=== PATIENT | female | born 1940 | race Caucasian/White ===

== ENCOUNTER 2017-04-09 14:48 | Observation (INO) | payer MEDICARE ==
[2017-04-09] MEDS ORDERED: Aspirin Low Dose CHEW TAB* 81 MG PO ONE (15:01)
[2017-04-09] MEDS ORDERED: Nitroglycerin TAB 0.4 MG* 0.4 MG TAB SL ONE (15:24)
--- NOTE | 2017-04-09 15:27 | RAD ---
INDICATION: Chest pain and heaviness COMPARISON: Chest x-ray March 26, 2008 TECHNIQUE: Single AP portable view of the chest was obtained. FINDINGS: Image quality is compromised due to the relative inferiority of a portable chest x-ray. Evaluation of the lungs is limited by what appears to be poor inspiratory effort. There are densities obscuring the bilateral diaphragm and causing mild costophrenic angle blunting. The lung apices are well-aerated. Most of the heart is obscured by the elevated diaphragm. There is coarse atherosclerotic calcification at the arch of the aorta is similar in appearance to the previous chest x-ray. There appears to be expansile cortical irregularity involving the proximal humeral shaft and head of the humerus. The glenohumeral joint is sclerotic with bony remodeling. IMPRESSION: 1. Low lung volumes could be due to poor inspiratory effort, bilateral elevation of the diaphragm or bibasilar pleural effusion/consolidation. 2. Bony deformity involving the right humeral head could be secondary to advanced degenerative change or an expansile bony lesion. I recommend a nonemergent right shoulder radiographic series for better evaluation.
[2017-04-09 16:47] LABS: Hematocrit 41 % (35-47); Hemoglobin 13.5 g/dl (12.0-16.0); Mean Corpuscular HGB Conc 33 g/dl (31-36); Mean Corpuscular Hemoglobin 32 pg (27-31); Mean Corpuscular Volume 98 fL (80-97); Mean Platelet Volume 7 um3 (7.4-10.4); Red Blood Count 4.22 10^6/ul (4.0-5.4); Red Cell Distribution Width 15 % (10.5-15); White Blood Count 6.8 10^3/ul (3.5-10.8)
[2017-04-09 17:08] LABS: Albumin 3.5 g/dL (3.2-5.2); BUN/Creatinine Ratio 15.9 (8-20); Calcium 8.9 mg/dL (8.6-10.3); EGFR African American 118.8 (>60); EGFR Non-African American 92.4 (>60); Globulin 3.7 g/dL (2-4); Potassium 4.3 mmol/L (3.5-5.0); Total Bilirubin 0.3 mg/dL (0.2-1.0); Total Protein 7.2 g/dL (6.4-8.9); Troponin I 0.04 ng/mL (<0.04)
[2017-04-09] MEDS ORDERED: Ondansetron INJ* 2 MG/ML VIAL IV PRN (20:07)
[2017-04-09] MEDS ORDERED: Acetaminophen TAB* 325 MG PO PRN (20:07)
[2017-04-09] MEDS ORDERED: Enoxaparin(*) 40 MG/0.4 ML SYR SUBCUT SCH (21:00)
[2017-04-09] MEDS ORDERED: Mirtazapine TAB* 15 MG PO SCH (21:00)
[2017-04-09] MEDS: Hydroxychloroquine TAB* 200 MG PO SCH (22:18)
[2017-04-09] MEDS: Pantoprazole TAB (NF) 40 MG TAB PO SCH (22:18)
--- NOTE | 2017-04-10 00:44 | HP ---
CC: Dr. Perez * ADMISSION HISTORY AND PHYSICAL: DATE OF ADMISSION: 04/09/17 PRIMARY CARE PROVIDER: Dr. Perez, in [place]. ADMITTING PROVIDER: CAMELIA Kirby. SUPERVISING PHYSICIAN: Dr. Niko Hu * (DICTATED BY CAMELIA KIRBY) CHIEF COMPLAINT: Heaviness in her shoulders. HISTORY OF PRESENT ILLNESS: This was a pleasant 76-year-old female with a history of coronary artery disease, status post acute NC, resulting in two stents placed in August of 2016 in [place], as well as hypertension, lupus, and obstructive sleep apnea, who presented to the emergency department with complaints of heaviness in both of her shoulders. It started earlier today. She states that she had this similar sensation prior to prior NC. She denies any chest pain, shortness of breath, nausea, vomiting, diaphoresis or abdominal pain. No fever or recent illness. She has not had similar symptoms since her stenting procedure in August of last year. Initial troponin in the emergency department was 0.04 without ischemic changes noted on EKG. Hospitalist group was asked to evaluate for admission. PAST MEDICAL HISTORY: 1. Coronary artery disease, status post acute NC in August 2016, with stenting completed in [place]. 2. Hypertension. 3. Lupus. 4. Obstructive sleep apnea. PAST SURGICAL HISTORY: 1. Breast lumpectomy, which was benign. 2. Hemorrhoidectomy. HOME MEDICATIONS: 1. Aspirin 81 mg p.o. daily. 2. Calcium 600 mg p.o. daily. 3. Vitamin D 1000 units p.o. daily. 4. Plavix 75 mg p.o. daily. 5. Ferrous sulfate 325 mg p.o. daily. 6. Lasix 40 mg p.o. daily. 7. Plaquenil 200 mg p.o. twice daily. 8. Lisinopril 2.5 mg p.o. daily. 9. Metoprolol tartrate 12.5 mg p.o. daily. 10. Mirtazapine 15 mg p.o. at bedtime. 11. Omeprazole 20 mg p.o. twice daily. 12. Benlysta infusion monthly. SOCIAL HISTORY: The patient lives at home with her . She has a 20-pack - year smoking history and quit greater than 30 years ago. Denies any regular alcohol consumption. REVIEW OF SYSTEMS: As noted above in HPI. All other systems reviewed and considered negative. PHYSICAL EXAMINATION GENERAL: This is a very pleasant elderly female, accompanied by her , who is in no acute distress. She denies any pain or discomfort at the time of evaluation. INITIAL VITALS: Temperature 98.3 degrees Fahrenheit, pulse 98 beats per minute , respiratory rate 20 per minute, oxygen saturation 95% on room air, blood pressure 126/111 mmHg. HEENT: Head is normocephalic, atraumatic. Mucous membranes are pink and moist. RESPIRATORY: Breath sounds are equal bilaterally and some diffuse crackles appreciated in both posterior lung mclaughlin. CARDIOVASCULAR: Heart has a regular rate and rhythm, without murmurs, rubs or gallops. ABDOMEN: Soft and nontender to palpation. EXTREMITIES: No edema appreciated. SKIN: Limited exam shows no concerning rashes or lesions. LABORATORY DATA: CBC shows a white blood cell count to 6800, hemoglobin of 13.5 g/dL, and platelet count of 245,000. Comprehensive metabolic panel shows sodium of 139 mmol/L, potassium of 4.3, BUN 10, creatinine 0.63, random glucose of 96 mg/dL. Lactic acid 1.2. Total bilirubin and transaminases within normal limits. Troponin 0.04 x2. IMAGING: EKG shows sinus rhythm with inverted T waves in leads 2 and aVF as well as V3. There is no prior EKG available for comparison. Chest x-ray shows low lung volumes perhaps due to poor inspiratory effort, with bibasilar pleural effusion or consolidation. She has bony deformity of the right humeral head. This could be secondary to advanced degenerative change or bony lesion. ASSESSMENT AND PLAN: This is a 76-year-old female with a history of coronary artery disease, status post acute NC in August of 2016, as well as hypertension, lupus, and obstructive sleep apnea, who presented with complaints of bilateral heaviness in her shoulders similar to her prior presentation with NC. 1. Chest pain equivalent - the patient's symptoms lasted for approximately an hour and is asymptomatic at this time. Initial troponin was 0.04 on two occasions without ischemic changes noted on EKG. The patient has known coronary artery disease with acute myocardial infarction in August of 2016, with stenting completed in [place]. So, no prior records are available for comparison. She is still on dual antiplatelet therapy with aspirin and Plavix. We will plan to admit to telemetry unit for continuous telemetry monitoring as well as repeat EKG and a third troponin. We will plan for nuclear stress testing in the morning. 2. Hypertension. Plan to continue home antihypertensive medications. 3. Lupus - the patient is managed by cutter apprentice hand out of [place], without active symptoms. 4. Obstructive sleep apnea. Compliant with CPAP. Her has brought this in from home. 5. Code status. The patient is full code. 6. Healthcare proxy is her . 7. DVT prophylaxis. The patient will be started on subcu Lovenox. DISPOSITION: The patient is being admitted to observation status with anticipated discharge for tomorrow. CAMELIA KIRBY [id number]/CPS #: [id number]
[2017-04-10 05:16] LABS: HDL Cholesterol 29.2 mg/dL
[2017-04-10] MEDS ORDERED: Ferrous Sulfate TAB* 325 MG PO SCH (09:00)
[2017-04-10] MEDS ORDERED: Aspirin Low Dose CHEW TAB* 81 MG PO SCH (09:00)
[2017-04-10] MEDS ORDERED: Metoprolol Tartrate TAB* 25 MG PO SCH (09:00)
[2017-04-10] MEDS ORDERED: Clopidogrel TAB* 75 MG PO SCH (09:00)
[2017-04-10] MEDS ORDERED: Lisinopril TAB* 5 MG PO SCH (09:00)
[2017-04-10] MEDS ORDERED: Furosemide TAB* 40 MG PO SCH (09:00)
--- NOTE | 2017-04-10 10:03 | ED ---
Oliva Beltran Auryana, scribed for Alexander Ramires MD on 04/09/17 at 1545 . HPI Chest Pain - HPI Summary HPI Summary: 76 year old female present with heaviness in her shoulders starting today - mid morning. She reports 8 or 9 out of 10 intensity lasting about 30 minutes - she denies any symptoms now. She denies chest tightness, pressure or any pain. She denies any nausea, diaphoresis, arm pain, jaw/throat pain, or any cough - but reports cough last night. Patient reports her pain is improved with rest. 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 Patient reports that the symptoms are similar to her [place] in August (2015). PMHx is significant for lupus , drug-eluding stent ( in [place] in [place]) with [place] and bilateral shoulder fracture. She is a former smoker. - History of Current Complaint Chief Complaint: EDChestPainROMI Time Seen by Provider: 04/09/17 15:01 Hx Obtained From: Patient Onset/Duration: Started Hours Ago - mid-morning, Still Present Timing: Constant Initial Severity: Moderate Current Severity: Moderate Pain Intensity: 7 - denies any now Pain Scale Used: 0-10 Numeric Chest Pain Location: Discrete at: - shoulders Alleviating Factor(s): Rest Associated Signs and Symptoms: Negative: Chest Pain, Fever, Diaphoresis, Nausea Related History: Similar Episode/Dx as: - YES - SEE HPI - Allergy/Home Medications Allergies/Adverse Reactions: Allergies Allergy/AdvReac Type Severity Reaction Status Date / Time No Known Allergies Allergy Verified 04/09/17 18:54 Home Medications: Home Medications Aspirin Low Dose CHEW TAB* [Aspirin Low Dose TAB*] 81 mg PO DAILY 04/09/17 [ History Confirmed 04/09/17] Calcium 600 mg PO DAILY 04/09/17 [History Confirmed 04/09/17] Cholecalciferol TAB* [Vitamin D TAB*] 1,000 unit PO DAILY 04/09/17 [History Confirmed 04/09/17] Clopidogrel TAB* [Plavix TAB*] 75 mg PO DAILY 04/09/17 [History Confirmed ] Ferrous Sulfate TAB* 325 mg PO DAILY 04/09/17 [History Confirmed 04/09/17] Furosemide TAB* [Lasix TAB*] 40 mg PO DAILY 04/09/17 [History Confirmed 04/09/17 ] Hydroxychloroquine TAB* [Plaquenil TAB*] 200 mg PO BID 04/09/17 [History Confirmed 04/09/17] Lisinopril TAB* [Prinivil TAB*] 2.5 mg PO DAILY 04/09/17 [History Confirmed ] Metoprolol Tartrate TAB* [Lopressor TAB*] 12.5 mg PO DAILY 04/09/17 [History Confirmed 04/09/17] Mirtazapine TAB* [Remeron TAB*] 15 mg PO BEDTIME 04/09/17 [History Confirmed ] Omeprazole CAP* [Prilosec CAP* 20 MG] 20 mg PO BID 04/09/17 [History Confirmed 04/09/17] PMH/Surg Hx/FS Hx/Imm Hx Endocrine/Hematology History: Reports: Hx Systemic Lupus Erythematosus Cardiovascular History: Reports: Hx Myocardial Infarction Musculoskeletal History: Reports: Hx of Fracture(s) - bilateral shoulder Infectious Disease History: Denies: Traveled Outside the [place] in Last 30 Days - Family History Known Family History: Positive: Cardiac Disease, Hypertension - Social History Occupation: Retired Lives: With Family Alcohol Use: Rare Hx Substance Use: No Substance Use Type: Reports: None Hx Tobacco Use: Yes Smoking Status (MU): Former Smoker Review of Systems Constitutional: Negative Negative: Fever, Chills, Skin Diaphoresis Eyes: Negative Negative: Erythema ENT: Negative Negative: Sore Throat Cardiovascular: Negative Negative: Chest Pain Positive: Cough - PER . Negative: Shortness Of Breath Gastrointestinal: Negative Negative: Abdominal Pain, Vomiting, Nausea Genitourinary: Negative Negative: dysuria, hematuria Positive: Arthralgia - SHOULDER HEAVINESS, Other - NO ARM OR JAW PAIN . Negative: Myalgia, Edema Skin: Negative Negative: Rash Neurological: Negative, Other - no dizziness Psychological: Normal All Other Systems Reviewed And Are Negative: Yes Physical Exam - Summary Physical Exam Summary: Constitutional: Well-developed, Well-nourished, Alert. (-) Distressed Skin: Warm, Dry HENT: Normocephalic; Atraumatic Eyes: Conjunctiva normal Neck: Musculoskeletal ROM normal neck. (-) JVD, (-) Stridor, (-) Tracheal deviation Cardio: Rhythm regular, rate normal, Heart sounds normal; Intact distal pulses; The pedal pulses are 2+ and symmetric. Radial pulses are 2+ and symmetric. (-) Murmur Pulmonary/Chest wall: Effort normal. (-) Respiratory distress, (-) Wheezes, (+) crackles in the bilateral bases. Abd: Soft, (-) Tenderness, (-) Distension, (-) Guarding, (-) Rebound Musculoskeletal: (-) Edema Lymph: (-) Cervical adenopathy Neuro: Alert, Oriented x3 Psych: Mood and affect Normal Triage Information Reviewed: Yes Vital Signs On Initial Exam: Initial Vitals Temp Pulse Resp BP Pulse Ox 98.3 F 98 20 126/111 95 04/09/17 14:50 04/09/17 14:50 04/09/17 14:50 04/09/17 14:50 04/09/17 14:50 Vital Signs Reviewed: Yes Diagnostics - Vital Signs Vital Signs Temp Pulse Resp BP Pulse Ox 04/09/17 14:50 98.3 F 98 20 126/111 95 - Laboratory Result Diagrams: 04/09/17 16:40 04/09/17 16:40 Lab Statement: Any lab studies that have been ordered have been reviewed, and results considered in the medical decision making process. - Radiology CXR Xray Interpretation: Positive (See Comments) - IMPRESSION: 1. Low lung volumes could be due to poor inspiratory effort, bilateral elevation of the diaphragm or bibasilar pleural effusion/consolidation. 2. Bony deformity involving the right humeral head could be secondary to advanced degenerative change or an expansile bony lesion. I recommend a nonemergent right shoulder radiographic series for better evaluation. Radiology Interpretation Completed By: Radiologist - EKG 14:57 EKG Interpretation: sinus rhythm @ 94 bpm, no STEMI Re-Evaluation - Re-Evaluation First Eval Re-Evaluation Time: 19:25 - pain has completely resolved Chest Pain Course/Dx - Course Assessment/Plan: 76 year old female present with heaviness in her shoulders starting today - mid morning. She reports 8 or 9 out of 10 intensity lasting about 30 minutes - she denies any symptoms now. She denies chest tightness, pressure or any pain. She denies any nausea, diaphoresis, arm pain, jaw/throat pain, or any cough - but reports cough last night. Patient reports her pain is improved with rest. 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 Patient reports that the symptoms are similar to her [place] in August (2015). PMHx is significant for lupus, drug-eluding stent ( in [place] in [place]) with [place] and bilateral shoulder fracture. She is a former smoker. Test results show CO2 33, lactic acid 1.2, AST 12, ALT 5, Troponin 0.04, and albumin/globin ratio 0.9. CXR-IMPRESSION: 1. Low lung volumes could be due to poor inspiratory effort, bilateral elevation of the diaphragm or bibasilar pleural effusion/ consolidation. 2. Bony deformity involving the right humeral head could be secondary to advanced degenerative change or an expansile bony lesion. I recommend a nonemergent right shoulder radiographic series for better evaluation. EKG- sinus rhythm @ 94 bpm, no STEMI. I discussed the case with Dr. Knowles who agrees to admit the patient. Patient is agreeable with plan. DDx : Musculoskeletal pain, GERD, acute [place], PNA. Dx: chest pain, unspecified. - Chest Pain Differential Diagnosis/HQI/PQRI: Acute [place], GI Disease - GERD, Other: - PNA, and musckuloskeletal pain - Diagnoses Provider Diagnoses: Chest pain, unspecified - Provider Notifications Discussed Care Of Patient With: Tello Knowles Time Discussed With Above Provider: 19:18 - agrees to admit the patient Instructed by Provider To: Admit As Inpatient Discharge - Discharge Plan Condition: Stable Disposition: ADMITTED TO [facility] Referrals: Steve Perez MD [Primary Care Provider] - The documentation as recorded by the Oliva ortiz Auryana accurately reflects the service I personally performed and the decisions made by , Alexander Ramires MD.
--- NOTE | 2017-04-10 11:02 | RAD ---
Edited for charges. INDICATION: Chest pain, acute myocardial infarction August 2016. COMPARISON: Correlation is made with a prior study from March 27, 2008. Technique: A single day myocardial perfusion stress study was performed. Initially a resting study was performed. The patient was given an intravenous injection of 10.0 mCi of technetium 99m tetrofosmin and and the heart was imaged in multiple projections. The patient returned later in the day and under the direction of Dr. Duckworth, the patient was exercised to a peak heart rate of 149 beats per minute which was 102% of the maximum predicted heart rate. Subsequently the patient was given intravenous injection of 25.3 mCi of technetium 99m tetrofosmin and the heart was imaged in multiple projections. The study was not gated. The patient was unable to be positioned for the attenuation corrected images limiting the study. Images were reconstructed in the axial, sagittal and coronal planes and in a 3- D format. FINDINGS: Review of the images demonstrates mild decreased activity in the inferior wall which is present on both the post exercise and delayed images consistent with either an infarct or attenuation artifact. There was no evidence for ischemic change. IMPRESSION: 1. DECREASED ACTIVITY IN THE INFERIOR WALL ON BOTH THE POST EXERCISE AND RESTING IMAGES CONSISTENT WITH AN INFARCT OR ATTENUATION ARTIFACT. THERE IS NO EVIDENCE FOR ISCHEMIA. 2. LIMITED STUDY. [facility]
--- NOTE | 2017-04-10 11:52 | PN ---
Subjective Date of Service: 04/10/17 Interval History: Patient seen and examined at bedside. Pt states that she is felling well today. Denies fever, chills, shortness of breath, chest discomfort, N/V/D. Pt states that she has been "pushing" heavy furniture around her house recently and feels that this may have aggravated her symptoms. Tele: Sinus rhythm, rate 70-80's. Family History: Unchanged from Admission Social History: Unchanged from Admission Past Medical History: Unchanged from Admission Objective Active Medications: Acetaminophen (Tylenol Tab*) 650 mg PO Q4H PRN Reason: FEVER/PAIN Aspirin (Aspirin Low Dose Tab*) 81 mg PO DAILY FRED Clopidogrel Bisulfate (Plavix Tab*) 75 mg PO DAILY FRED Enoxaparin Sodium (Lovenox(*)) 40 mg SUBCUT Q24H FRED Ferrous Sulfate (Ferrous Sulfate Tab*) 325 mg PO DAILY FRED Furosemide (Lasix Tab*) 40 mg PO DAILY FRED Hydroxychloroquine Sulfate (Plaquenil Tab*) 200 mg PO BID FRED Lisinopril (Prinivil Tab*) 2.5 mg PO DAILY FRED Metoprolol Tartrate (Lopressor Tab*) 12.5 mg PO DAILY FRED Mirtazapine (Remeron Tab*) 15 mg PO BEDTIME FRED Ondansetron HCl (Zofran Inj*) 4 mg IV Q4H PRN Reason: NAUSEA/VOMITING Pantoprazole Sodium (Protonix Tab (Nf)) 40 mg PO BID [facility] Vital Signs 04/09/17 04/09/17 04/09/17 21:38 21:40 21:43 Temperature 97.6 F Pulse Rate 81 Respiratory 21 22 18 Rate Blood Pressure 142/54 (mmHg) O2 Sat by Pulse 98 Oximetry 04/09/17 04/10/17 23:17 03:20 Temperature 97.8 F Pulse Rate 84 78 Respiratory 20 24 Rate Blood Pressure 128/64 135/71 (mmHg) O2 Sat by Pulse 98 99 Oximetry Oxygen Devices in Use Now: None Appearance: NAD, sitting up in bed Ears/Nose/Mouth/Throat: Mucous Membranes Moist Respiratory: Symmetrical Chest Expansion and Respiratory Effort, Clear to Auscultation Cardiovascular: NL Sounds; No Murmurs; No JVD, RRR Abdominal: NL Sounds; No Tenderness; No Distention Extremities: No Edema Skin: No Rash or Ulcers Neurological: Alert and Oriented x 3, NL Muscle Strength and Tone Lines/Tubes/Other Access: Clean, Dry and Intact Peripheral IV - site benign Nutrition: Taking PO's Result Diagrams: 04/09/17 16:40 04/09/17 16:40 Assess/Plan/Problems-Billing Assessment: Ms. Ayala is a 76 yo female with PMH significant for CAD, [place] in 08/2016, HTN, lupus and VINCE who presented to the emergency room with complaints of bilateral heaviness in her shoulder similar to presentation for her [place]. - Patient Problems (1) Chest pain Code(s): R07.9 - CHEST PAIN, UNSPECIFIED SNOMED Code(s): 33230727 Comment: - Pt presented with bilateral shoulder heaviness, no associated symptoms of chest discomfort, diaphoresis, N/V or shortness of breath - Troponins 0.04, 0.04 and 0.03 - Nuclear stress test - Cardiology read as low risk and Radiology read as decreased activity in the inferior wall on both post exercise and resting images. No evidence for ischemia (2) CAD (coronary artery disease) Code(s): I25.10 - ATHSCL HEART DISEASE OF [place] CORONARY ARTERY W/O ANG PCTRS SNOMED Code(s): 04050284 Comment: - Continue ASA, Plavix and metoprolol (3) HTN (hypertension) Code(s): I10 - ESSENTIAL (PRIMARY) HYPERTENSION SNOMED Code(s): 37784401 Comment: - Normotensive - Continue lasix, lisinopril and metoprolol tartrate (4) Lupus Code(s): M32.9 - SYSTEMIC LUPUS ERYTHEMATOSUS, UNSPECIFIED SNOMED Code(s): 88870260 Comment: - Continue to follow-up outpatient with rheumatology (5) VINCE (obstructive sleep apnea) Code(s): G47.33 - OBSTRUCTIVE SLEEP APNEA (ADULT) (PEDIATRIC) SNOMED Code(s): 53321741 Comment: - Continue CPAP (6) DVT prophylaxis Code(s): HLI8942 - SNOMED Code(s): 721719151 (7) Full code status Code(s): Z78.9 - OTHER SPECIFIED HEALTH STATUS SNOMED Code(s): 236740468 Status and Disposition: OBV. Stable for discharge to home today.
[2017-04-10] MEDS: Hydroxychloroquine TAB* 200 MG PO SCH (12:07)
[2017-04-10] MEDS: Pantoprazole TAB (NF) 40 MG TAB PO SCH (12:09)
[2017-04-10 12:37] VITALS: BP 126/68
--- NOTE | 2017-04-11 01:19 | DS ---
CC: Dr. Perez* DISCHARGE SUMMARY: DATE OF ADMISSION: 04/09/17 DATE OF DISCHARGE: 04/10/17 ATTENDING PHYSICIAN: Abelino Knowles MD *(dictated by Kerri Huitron NP) PRIMARY CARE PROVIDER: Steve Perez MD PRIMARY DIAGNOSIS: Atypical chest pain, suspect noncardiac in nature. SECONDARY DIAGNOSES: 1. History of coronary artery disease, status post acute myocardial infarction. 2. Hypertension. 3. Lupus. 4. Obstructive sleep apnea. STUDIES WHILE IN THE HOSPITAL: 1. Chest x-ray on 04/09/17. Radiologist's impression, low lung volumes could be due to poor inspiratory effort, bilateral evaluation of the diaphragm or bibasilar pleural effusion with consolidation. Bony deformity involving the right humeral head could be secondary to advanced degenerative changes or an expansile bony lesion. Recommend a nonemergent right shoulder radiographic series for better evaluation. 2. Nuclear exercise cardiac stress test on 04/10/17. Cardiology's observation , the patient with history of CAD and recent chest pain. Baseline EKG in normal sinus rhythm, poor R wave progression. The patient exercised for 4.10 minutes; chest pain, none; arrhythmia, none; ST changes, none. Myoview injected at peak exercise. Technical Training Coordinator's conclusion, maximal effort stress test. No evidence of ischemia. Low risk stress test. Nuclear portion to be reported separately by Radiology. Radiologist's interpretation, decreased activity in the inferior wall on both the postexercise and resting images consistent with an infarct or attenuation artifact. There is no evidence for ischemia. Limited study. DISCHARGE MEDICATIONS: Continued home medications: 1. Vitamin D 1000 units oral daily. 2. Aspirin 81 mg oral daily. 3. Furosemide 40 mg oral daily. 4. Plavix 75 mg oral daily. 5. Remeron 15 mg oral daily at bedtime. 6. Ferrous sulfate 325 mg oral daily. 7. Omeprazole 20 mg oral twice daily. 8. Metoprolol tartrate 12.5 mg oral daily. 9. Lisinopril 2.5 mg oral daily. 10. Plaquenil 200 mg oral twice daily. 11. Calcium 600 mg oral daily. HISTORY OF PRESENT ILLNESS/HOSPITAL COURSE: Ms. Ayala is a 76-year-old female with past medical history significant for coronary artery disease, status post acute myocardial infarction resulting in 2 stents placed in August 2016 in [place] as well as hypertension, lupus, and obstructive sleep apnea who presented today at [facility] Room with complaints of heaviness in both of her shoulders starting earlier in the day. The patient felt that the symptoms were similar to prior sensation she had before her previous [place]. The patient denied any associated symptoms such as chest discomfort, shortness of breath, nausea, vomiting, diaphoresis, or abdominal pain. The patient denied any recent illness and has not had any similar symptoms since her stenting procedure in August of last year. It is to note that the patient reports recently moving heavy furniture around her house and she has previously fractured both of her shoulders. Due to her symptoms with bilateral shoulder heaviness, she decided to present to the emergency room for further evaluation of her symptoms. While in the emergency room, the patient had an initial troponin of 0.04 and an EKG without signs of ischemia and the Hospitalists were asked to evaluate the patient for admission. While in the hospital, the patient's troponin was trended, and were 0.04 x2 followed by 0.03. The patient underwent an exercise nuclear stress test this morning. The Cardiology read on the stress test was low risk. No signs of ischemia were noted. Radiology was unable to risk stratify the stress test due to inability to determine an EF. Due to attenuation artifact, they were unable to get better imaging due to the patient's history of bilateral shoulder injuries. There was no evidence for ischemia. The patient denied any chest discomfort, shortness of breath, diaphoresis. The patient feels that she may have overdone it moving furniture. It is suspected that the patient's discomfort may represent musculoskeletal strain. Ms. Ayala is stable for discharge to home today. Vital signs are as follows: Temperature 97.8, heart rate 74, respiratory rate 24, O2 sat 99%, and blood pressure 135/71. DISCHARGE PLAN: Ms. Ayala will be discharged to home. Activity as tolerated. A heart healthy diet. I suspect that her bilateral shoulder discomfort is musculoskeletal in nature. She should be seen in followup by her primary care provider, Dr. Perez. She has an appointment for Sunday, , at 2 p.m. The patient should continue to follow up with her local medical staff manager as previously determined. The patient has been continued on all of her home medications. She has been asked to return to the emergency room for any chest discomfort or shortness of breath. This is a summarized report of a complex medical history and hospital stay. For further details, please see the entire medical record. TIME SPENT: Time for this discharge was approximately 45 minutes, greater than half the time was spent with the patient and discussing discharge plans and instructions. CONDITION ON DISCHARGE: Stable. Reviewed by SHARLA AMIN 04/12/17 1109 [id number] #: [id number]
== END 2017-04-10 14:00 | disposition home or self-care (01) ==
LOC: ED 14:48 → MEDTELE 20:07
PROVIDERS: ADMIT Internal Medicine; ATTEND Internal Medicine
DX: R07.9 Chest pain, unspecified (principal); I25.10 Atherosclerotic heart disease of native coronary artery without angina pectoris; R94.31 Abnormal electrocardiogram [ECG] [EKG]; I25.2 Old myocardial infarction; I10 Essential (primary) hypertension; M32.9 Systemic lupus erythematosus, unspecified; G47.33 Obstructive sleep apnea (adult) (pediatric); Z79.01 Long term (current) use of anticoagulants; Z87.891 Personal history of nicotine dependence
CPT/HCPCS: 36415; 71010; 78452; 80053; 80061; 83605; 84484; 85025; 93005; 93017; 96372; 99284; A9270-GY; A9502; G0378; J1650

== ENCOUNTER 2019-11-13 18:30 | Emergency (ER) | payer MEDICARE ==
--- OUTSIDE RECORDS SUMMARY | 2019-11-13 18:38 | XMS REPORT | Summary of Care ---
:1940 Author Organization [facility] Address [address] [place] [address] Care Team Providers Name Role Phone Erick Eli Primary Care Provider Reason for Visit Reason Comments Urinary Tract Infection frequency, burning, odor started Sunday Encounter Details Date Type Department Care Team Description 10/03/2019 Office Visit [facility] Erick Eli, Urinary tract infection without hematuria, site unspecified (Primary Dx); Medicine Depression screen [address] [phone] [place] [address] [phone] Allergies Active Allergy Reactions Severity Noted Date Comments Augmentin GI Reaction 08/26/2019 diarrhea Pantoprazole Rash 01/02/2013 documented as of this encounter (statuses as of 10/03/2019) Medications Medication Sig Dispensed Refills Start Date End Date Status Belimumab (BENLYSTA IV) by Intravenous 0 Active route Every 63 days. albuterol HFA (VENTOLIN) Take 2 Puffs by 1 Inhaler 5 01/19/2015 Active 108 (90 BASE) MCG/ACT inhalation EVERY Inhalation Aero FOUR HOURS SolnIndications: Cough NEEDED (wheezing). ferrous sulfate 325 (65 Take 1 Tab by 90 Tab 3 10/10/2016 Active FE) MG Oral Tab mouth DAILY. Omeprazole delayed rel Take 20 mg by 180 Cap 3 06/12/2018 Active cap 20 MG Oral CAPSULE mouth TWICE DELAYED RELEASE DAILY. Take 30-60 minutes prior to breakfast and prior to dinner (supper). Polyethyl Glycol-Propyl Place 1 Drop in 0 Active Glycol (SYSTANE OP) both eyes TWICE DAILY. Calcium Take 1 Tab by 0 Active Carb-Cholecalciferol mouth DAILY. (CALCIUM/VITAMIN D PO) nitroglycerin DISSOLVE 1 TABLET 25 Tab 0 03/10/2019 Active (NITROSTAT) 0.4 MG UNDER TONGUE Sublingual SL Tab EVERY 5 MINUTES NEEDED FOR CHEST PAIN hydroxychloroquine Take 1 Tab by 180 Tab 3 03/31/2019 Active (PLAQUENIL) 200 MG Oral mouth TWICE Tab DAILY. metoprolol (LOPRESSOR) Take 1 Tab by 180 Tab 3 03/31/2019 Active 25 MG Oral mouth TWICE TabIndications: Chronic DAILY. 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 famotidine (PEPCID) 20 Take 1 Tab by 60 Tab 11 07/29/2019 Active MG Oral TabIndications: mouth TWICE Gastroesophageal reflux DAILY. disease without esophagitis doxycycline (VIBRAMYCIN) Take 100 mg by 20 Tab 0 08/26/2019 Active 100 MG Oral mouth TWICE TabIndications: Acute DAILY. frontal sinusitis, recurrence not specified mirtazapine (REMERON) 15 TAKE 1 TABLET BY 90 Tab 3 09/23/2019 Active MG Oral Tab MOUTH AT BEDTIME lisinopril (PRINIVIL, TAKE 1 TABLET BY 90 Tab 0 09/30/2019 Active ZESTRIL) 5 MG Oral Tab MOUTH ONCE DAILY nitrofurantoin Take 1 Cap by 14 Cap 0 10/03/2019 Active monohydrate macrocrystal mouth TWICE (MACROBID) 100 MG Oral DAILY. Cap documented as of this encounter (statuses as of 10/03/2019) Active Problems Problem Noted Date Dysphagia 02/14/2019 Elevated troponin 12/25/2018 ASHD (arteriosclerotic heart disease) 05/01/2017 ACS (acute coronary syndrome) 05/01/2017 Colitis 03/01/2016 Food impaction of esophagus 06/18/2015 Esophageal stricture 06/18/2015 Pressure ulcer, buttock(707.05) 01/19/2014 Pressure ulcer, stage III(707.23) 01/19/2014 Vitamin D deficiency 12/30/2012 Iron deficiency 12/30/2012 Iron deficiency anemia 02/06/2012 Hemorrhage of rectum and anus 01/06/2012 Internal hemorrhoids with other complication 01/06/2012 Cellulitis and abscess of leg, except foot 01/01/2012 Urinary tract infection, site not specified 01/01/2012 Rhinosinusitis 11/24/2011 Screening breast examination 03/10/2010 Routine gynecological examination 03/10/2010 Vitamin B12 deficiency 03/10/2010 Hypertriglyceridemia 03/10/2010 FH: uterine cancer 03/10/2010 Ex-cigarette smoker 03/10/2010 Guaiac positive stools 03/10/2010 Overview: Replaced inactive diagnosis CHF 01/27/2010 Overview: Echocardiogram 01/24/10 IN SUMMARY: This study shows mild left ventricular hypertrophy with an ejection fraction low normal at 55% to 60%. There is mild left atrial enlargement. There are no significant hemodynamic abnormalities. CXR 01/19/10 Impression: Atelectatic change at the lung bases. BNP 01/19/10 25 Nuclear 06/29/09 Impression: Normal study. No reversible ischemia. Cardiac catheterization 01/21/02 Dr. Gonzalez: Normal coronary arteries. Preserved left ventricular function. Osteoporosis 01/19/2010 Other and unspecified hyperlipidemia 07/16/2009 Anemia 06/04/2008 Dehydration 05/01/2008 Fever and other physiologic disturbances of temperature regulation 05/01/2008 Other chronic nonalcoholic liver disease 04/23/2008 Other noninflammatory disorder of ovary, fallopian tube, and broad 04/23/2008 ligament Systemic lupus erythematosus 01/30/2008 Abdominal pain, unspecified site 01/28/2008 Loss of weight 01/28/2008 Other and unspecified ovarian cyst 01/28/2008 Diverticulosis of colon (without mention of hemorrhage) 06/24/2007 documented as of this encounter (statuses as of 10/03/2019) Resolved Problems Problem Noted Date Resolved Date Osteopenia 07/20/2008 01/19/2010 Essential hypertension, benign 01/30/2008 07/20/2008 Anemia, unspecified 01/30/2008 06/04/2008 Osteoporosis, unspecified 06/24/2007 07/20/2008 documented as of this encounter (statuses as of 10/03/2019) Immunizations Name Administration Dates Next Due Adacel TdaP 11/25/2015 Influenza (IM) Preservative Free 07/18/2019, 2017, 07/08/2015, 06/24/2012, 07/04/2011, 07/20/2008 Influenza (IM) W/Pres 06/27/2016 Influenza Vaccine High Dose 07/17/2018 Influenza Virus Vaccine - Whole 07/11/2007 PNEUMOCOCCAL POLYSACCHARIDE VACCINE 09/18/2012 Pneumococcal Conjugate(13 Valent) 04/23/2015 documented as of this encounter Social History Tobacco Use Types Packs/Day Years Used Date Former Smoker Cigarettes 1 15 Quit: 02/01/1975 Smokeless Tobacco: Never Used Alcohol Use Drinks/Week oz/Week Comments No 0 Standard drinks or equivalent 0.0 Sex Assigned at Date Recorded Not on file Job Start Date Occupation Industry Not on file Not on file Not on file Travel History Travel Start Travel End No recent travel history available. documented as of this encounter Last Filed Vital Signs Vital Sign Reading Time Taken Comments Blood Pressure 126/72 10/03/2019 11:18 AM EST Pulse 79 10/03/2019 11:18 AM EST Temperature 36.7 10/03/2019 11:18 AM EST C (98 F) Respiratory Rate - - Oxygen Saturation 92% 10/03/2019 11:18 AM EST Inhaled Oxygen Concentration - - Weight 48.1 kg (106 lb) 10/03/2019 11:18 AM EST Height 144.8 cm (4' 9") 10/03/2019 11:18 AM EST Body Mass Index 22.94 10/03/2019 11:18 AM EST documented in this encounter Progress Notes Erick Eli MD - 10/03/2019 11:00 AM EST PATIENT: Divina Ayala : 1940 DATE OF SERVICE: 10/03/2019 CHIEF COMPLAINT: Chief Complaint Patient presents with Urinary Tract Infection frequency, burning, odor started Sunday Subjective HISTORY OF PRESENT ILLNESS: Divina Ayala is a 79-y.o. female. HPI Divina is here with urinary frequency burning and odor. No fever or chills. No flank pain. Similar episodes in the past which were diagnosed as UTI. Past Medical History: Diagnosis Date Anemia, unspecified 01/30/2008 Arthritis Colitis 03/01/2016 Diverticulitis of colon 06/24/2007 Diverticulosis of colon (without mention of hemorrhage) 06/24/2007 GERD (gastroesophageal reflux disease) Hemorrhage of rectum and anus 01/06/2012 History of breast surgery rt bx benign Humerus fracture hyperlipidemia 06/24/2007 Hypertension[401.1] 01/30/2008 Intermediate coronary syndrome (HCC) Left heart failure (HCC) Lipidoses VINCE (obstructive sleep apnea) Osteoporosis 06/24/2007 Other chronic nonalcoholic liver disease 04/23/2008 pt denies Other postprocedural status(V45.89) RT BENIGN PT IN HER 50'S 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 Personal history of contraception, presenting hazards to health 30-36 Postmenopausal Surgery, elective cataracts/yag ou Systemic lupus erythematosus (HCC) 01/30/2008 Vitamin B12 deficiency 03/10/2010 Family History Problem Relation Age of Onset Heart Mother valve replacement Uterine Cancer Mother Hypertension Mother Heart Father Heart Disease Father Hypertension Father Anesth Problems No family history Arthritis No family history Clotting Disorder No family history Diabetes No family history Kidney Disease No family history Thyroid Disease No family history Glaucoma No family history Macular Degeneration No family history Blindness No family history Current Outpatient Medications Medication Sig albuterol HFA (VENTOLIN) 108 (90 BASE) MCG/ACT Inhalation Aero Soln Take 2 Puffs by inhalation EVERY FOUR HOURS NEEDED (wheezing). Belimumab (BENLYSTA IV) by Intravenous route Every 63 days. Calcium Carb-Cholecalciferol (CALCIUM/VITAMIN D PO) Take 1 Tab by mouth DAILY. clopidogrel (PLAVIX) 75 MG Oral Tab Take 1 Tab by mouth DAILY. doxycycline (VIBRAMYCIN) 100 MG Oral Tab Take 100 mg by mouth TWICE DAILY. famotidine (PEPCID) 20 MG Oral Tab Take 1 Tab by mouth TWICE DAILY. ferrous sulfate 325 (65 FE) MG Oral Tab Take 1 Tab by mouth DAILY. hydroxychloroquine (PLAQUENIL) 200 MG Oral Tab Take 1 Tab by mouth TWICE DAILY. lisinopril (PRINIVIL, ZESTRIL) 5 MG Oral Tab TAKE 1 TABLET BY MOUTH ONCE DAILY metoprolol (LOPRESSOR) 25 MG Oral Tab Take 1 Tab by mouth TWICE DAILY. mirtazapine (REMERON) 15 MG Oral Tab TAKE 1 TABLET BY MOUTH AT BEDTIME nitrofurantoin monohydrate macrocrystal (MACROBID) 100 MG Oral Cap Take 1 Cap by mouth TWICE DAILY. nitroglycerin (NITROSTAT) 0.4 MG Sublingual SL Tab DISSOLVE 1 TABLET UNDER TONGUE EVERY 5 MINUTES NEEDED FOR CHEST PAIN Omeprazole delayed rel cap 20 MG Oral CAPSULE DELAYED RELEASE Take 20 mg by mouth TWICE DAILY. Take 30-60 minutes prior to breakfast and prior to dinner (supper). Polyethyl Glycol-Propyl Glycol (SYSTANE OP) Place 1 Drop in both eyes TWICE DAILY. No current facility-administered medications for this visit. Allergies Allergen Reactions Augmentin GI Reaction diarrhea Protonix [Pantoprazole] Rash Social History Socioeconomic History Marital status: Spouse name: Not on file Number of children: Not on file Years of education: Not on file Highest education level: Not on file Occupational History Not on file Social Needs Financial resource strain: Not on file Food insecurity Worry: Not on file Inability: Not on file Transportation needs Medical: Not on file Non-medical: Not on file Tobacco Use Smoking status: Former Smoker Packs/day: 1.00 Years: 15.00 Pack years: 15.00 Types: Cigarettes Last attempt to quit: 02/01/1975 Years since quittin.6 Smokeless tobacco: Never Used Substance and Sexual Activity Alcohol use: No Alcohol/week: 0.0 standard drinks Drug use: No Sexual activity: Never Lifestyle Physical activity Days per week: Not on file Minutes per session: Not on file Stress: Not on file Relationships Social connections Talks on phone: Not on file Gets together: Not on file Attends adventism service: Not on file Active member of club or organization: Not on file Attends meetings of clubs or organizations: Not on file Relationship status: Not on file Intimate partner violence Fear of current or ex partner: Not on file Emotionally abused: Not on file Physically abused: Not on file Forced sexual activity: Not on file Other Topics Concern Back Care Not Asked Bike Helmet Not Asked Blood Transfusions Not Asked Caffeine Concern Not Asked Exercise Not Asked Hobby Hazards Not Asked International Travel Not Asked Service Not Asked Occupational Exposure Not Asked Seat Belt Not Asked Self-Exams Not Asked Sleep Concern Not Asked Special Diet Not Asked Stress Concern Not Asked Weight Concern Not Asked Social History Narrative 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 Patient is , and has 2 children. BMI:26.63 FLU VACCINE:06/21/09 PNEUMONIA VACCINE:05/2010TOBACCO USE:non ADVISING SMOKER TO QUIT: BONE DENSITY:07/14/09 MAMMOGRAPHY:07/16/07 URINARY INCONTINENCE:n/a COLORECTAL CANCER SCREENIN/16/07 Over the last 2 weeks, have you been feeling down, depressed, anxious, or hopeless?: 0 Over the past 2 weeks, have you felt little interest or pleasure in doing things ?: 0 REVIEW OF SYSTEMS: ROS Objective PHYSICAL EXAM: VITALS: BP 126/72 | Pulse 79 | Temp 98 F (36.7 C) | Ht 4' 9" (1.448 m) | Wt 106 lb (48.1 kg) | SpO2 92% | BMI 22.94 kg/m Body mass index is 22.94 kg/m. Physical Exam Alert and oriented in no distress Normal mood and affect. Vital signs as noted Skin is warm and dry with good turgor.No visible rashes. Lungs are clear to auscultation. Respirations are unlabored Heart rhythm is regular. No murmurs noted No focal weakness. No facial nerve weakness Abdomen is soft and nontender. Admission on 07/08/2019, Discharged on 07/08/2019 Component Date Value Ref Range Status Upper GI endoscopy 07/08/2019 Final Value:[facility] Patient Name: Divina Ayala Procedure Date: 07/08/2019 11:19 AM Date of : 1940 Admit Type: Outpatient Age: 79 Room: 17 Gender: Female Note Status: Finalized Attending MD: DREA STEPHEN MD Instrument Name: [id number] Procedure: Upper GI endoscopy Indications: Dysphagia Providers: DREA STEPHEN MD, Carlos Jones RN (Nurse), Susanne Bonner (Corsetier) Referring MD: ERICK ELI MD (Referring MD) Medicines: Monitored Anesthesia Care Complications: No immediate complications. Procedure: The patient's current medications and allergies were reviewed and recorded in the nurses notes. The patient was made aware of the risk of the procedure which can include: bleeding, infection, perforation, an adverse reaction to sedation, and a risk of missed lesions, among others. The patient appeared to understand. An opportunity for questions was provided, and an informed consent form was signed. The scope was passed under direct vision. Throughout the procedure, the patient's blood pressure, pulse EKG, and oxygen saturations were monitored continuously. The Endoscope was introduced through the mouth, and advanced to the duodenal bulb. The Z-line was located at: The upper GI endoscopy was accomplished without difficulty. The patient tolerated the procedure well. Findings: The examined duodenum was normal. The entire examined stomach was normal. A 5 cm hiatal hernia was present. One benign-appearing, intrinsic moderate (circumferential scarring or stenosis; an endoscope may pass) stenosis was found 35 cm from the incisors. This stenosis measured 1.5 cm (inner diameter) x less than one cm (in length). The stenosis was traversed. A TTS dilator was passed through the scope. Dilation with a 15-16.5-18 mm balloon dilator was performed to 18 mm. The dilation site was examined following endoscope reinsertion and showed mild mucosal disruption, mild improvement in luminal narrowing and no bleeding, mucosal tear or perforation. A non-bleeding diverticulum with a large opening and no stigmata of recent bleeding was found in the distal esophagus. Food was found in the lower third of the esophagus. Impression: - Normal examined duodenum. - Normal stomach. - 5 cm hiatal hernia. - Benign-appearing esophageal stenosis. Dilated. - Diverticulum in the distal esophagus. - Food in the lower third of the esophagus. - No specimens collected. Recommendation: - Discharge patient to home (ambulatory). - Advance diet as tolerated. - Continue present medications. - Repeat upper endoscopy PRN for retreatment. 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 All rights reserved. The codes documented in this report are preliminary and upon securities sales associate review may be revised to meet current compliance requirements. DREA STEPHEN MD 07/08/2019 12:50:06 PM This report has been signed electronically. Number of Addenda: 0 Note Initiated On: 07/08/2019 11:19 AM CC Letter to: ERICK ELI MD (CC) Estimated Blood Loss: Estimated blood loss was minimal. ASSESSMENT / IMPRESSION: ICD-9-CM ICD-10-CM 1. Urinary tract infection without hematuria, site unspecified 599.0 N39.0 URINE DIP MANUAL (AMB POCT) URINE CULTURE (C&S) CANCELED: URINE DIP CLINITEK (AMB POCT) CANCELED: URINE CULTURE (C&S) 2. Depression screen V79.0 Z13.31 She will attempt to give a sample but if not she will go ahead and start antibiotics. Plan Call or return to clinic prn if these symptoms worsen or fail to improve as anticipated. Author: Erick Eli MD 10/03/2019 14:54 documented in this encounter Plan of Treatment Date Type Specialty Care Team Description 01/27/2020 Office Visit Pulmonary Lupe Mckay MD [address] [place] [address] 02/11/2020 Office Visit Gastroenterology Aliyah Zhang, SELBE [address] [place] [address] [address] [phone] 02/27/2020 Office Visit Pulmonary Lupe Mckay MD [address] [place] [address] 03/03/2020 Office Visit Cardiology Lori Patel CRNP [address] [place] [address] 04/19/2020 IPPR Ophthalmology 04/19/2020 IPPR Ophthalmology 04/19/2020 Ocular Visit Optometry Oumar Mayes, OD [address] [place] [address] 05/28/2020 Office Visit project construction assistant manager Holly Rodgers CRNP [address] [place] [address] Name Type Priority Associated Diagnoses Order Schedule URINE DIP MANUAL (AMB POCT Routine Urinary tract infection Ordered: 2019 POCT) without hematuria, site unspecified URINE CULTURE (C&S) Lab Routine Urinary tract infection 1 Occurrences starting without hematuria, site 10/03/2019 until unspecified 04/02/2020 Health Maintenance Due Date Last Done Comments HEPATITIS A IMMUNIZATION 1941 SERIES (1 of 2 - Risk 2-dose series) DTaP/Tdap/Td Vaccines (1 - 1953 Tdap) ZOSTER IMMUNIZATION SERIES 1992 (1 of 2) FALL RISK ASSESSMENT 2007 MEDICARE ANNUAL WELLNESS 03/07/2017 03/07/2016 (Postponed) VISIT DEPRESSION SCREENING 10/03/2020 10/03/2019 Colonoscopy 05/24/2021 05/24/2016, 01/02/2012, 07/02/2007, Additional history exists OSTEOPOROSIS SCREENING 01/05/2027 01/05/2017, 03/19/2014, 01/26/2011, Additional history exists HIV SCREENING Completed 03/05/2012, 03/05/2012 PNEUMOCOCCAL 65+YRS Completed 04/23/2015, 09/18/2012 INFLUENZA VACCINE Completed 07/18/2019, 07/17/2018, 2017, Additional history exists HPV IMMUNIZATION SERIES Aged Out No longer eligible based on patient's age to complete this topic MENINGOCOCCAL VACCINE IMM Aged Out No longer eligible based on patient's age to complete this topic documented as of this encounter Goals Goal Patient Goal Associated Recent Patient-Stated? Author Type Problems Progress Blood Pressure Blood Pressure 126/72 No Chris, < 150/90 (10/03/2019 MD Erick 11:18 AM EST) Note: This is an individualized treatment (blood pressure) goal for Divina Ayala: Displayed above (on the left) is your goal for blood pressure control. Your most recent blood pressure is also shown above, on the right. You should try to achieve blood pressures that are lower than your goal listed above (on the left). Weight increase vs. 18 mo CHF 1.4 (10/03/2019 11:18 AM EST) No Yazmin Cross RN min (lbs) < 5 Note: This is an individualized treatment (congestive heart failure, CHF) goal for Divina Ayala: Displayed above (on the right) is how many pounds you are in excess of your lowest weight over the past 18 months. Note that lower numbers are better. Excessive weight gain often indicates fluid reten tion and worsening heart failure. You should contact your doctor immediately if the above number is too high (above your goal, the number on the left). Depression screen (PHQ-9) total score < 5 Depression No Erick Eli MD Note: This is an individualized treatment (depression) goal for Divina Ayala: Displayed above is your goal for a depression screening (PHQ-9) score that would indicate good control of your depression. Consume a [id number] diet Lifestyle No Yazmin Cross RN Note: This is an individualized lifestyle goal for Divina Ayala: Please do not add additional salt to your food. Additional salt may lead to fluid retention and worsen your congestive heart failure. Keep a regular sleep schedule Lifestyle No Erick Eli MD Note: This is an individualized lifestyle goal for Divina Ayala: Please maintain a regular sleep schedule. This may help with some symptoms of depression. Take all prescribed medications as Self-management No Yazmin Cross RN directed Note: This is an individualized self-management goal for Divina Ayala: Please take all prescribed medications as directed. 1. Do not skip doses. If you cannot afford your medications, talk with your doctor. 2. Use a pill reminder system such as a pill box if needed. Your pharmacist can help you with this. 3. Contact your Pharmacy 5 days before your medication runs out. If you cannot take your medications for any reasons, talk with your doctor. 4. Please bring all of your medication bottles and inhalers (or a list of all your medications/inhalers) with you to every visit. Potential barriers to meeting all of your care plan goals will continue to be addressed on an ongoing basis. Check your weight daily Self-management Yazmin Moss RN Note: This is an individualized self-management goal for Divina Ayala: Please check your weight daily. Refer to the accompanying CHF treatment goal and call your doctor immediately for further instructions on how to respond to unexpected weight gain. documented as of this encounter Implants Implanted Type Area Shipyard Painting Supervisor Device Shelf Model / Serial Identifier Expiration Date / Lot Iol, [id number] 16.0 Diopter - [id number] Left: Eye STORZ [id number] / Implanted: Qty: 1 on 06/06/2010 at [facility] / [id number] Iol, [id number] 16.0 Diopter - [id number] Right: STORZ [id number] / Implanted: Qty: 1 on 06/27/2010 at [facility] / [id number] documented as of this encounter Results Not on filedocumented in this encounter Visit Diagnoses Diagnosis Urinary tract infection without hematuria, site unspecified Depression screen Screening for depression documented in this encounter Insurance Payer Benefit Plan / Subscriber ID Effective Dates Phone Address Type Group MEDICARE MEDICARE PART A xxxxxxxxxxx 2007-Present Medicare & B [facility] xxxxxxxxxxx 2016-Present [facility] OPTIONS Guarantor Name Account Type Relation to Date of Phone Billing Patient Address Divina Ayala Personal/Family 1940 [phone] [address] (Home) [place], [place] [phone] [id number] (Work) documented as of this encounter Advance Directives Code Status Date Activated Date Inactivated Comments Full Code 12/25/2018 6:26 PM 12/28/2018 4:09 PM Does the patient have decision making capacity? Yes Order was discussed with: Patient I discussed all options and patient/surrogate requested and agreed to: Full Code Full Code 05/01/2017 3:16 PM 05/03/2017 2:14 PM Does patient have decision making capacity? yes Order discussed with: Patient I discussed all options and patient/surrogate requested and agreed to: Full Code DNR/DNI 03/01/2016 3:47 PM 03/04/2016 1:00 PM Does patient have decision making capacity? yes Order discussed with: Patient I discussed all options and patient/surrogate requested and agreed to: DNR/DNI Full Code 12/22/2011 1:04 AM 01/06/2012 7:16 PM
[2019-11-13 19:05] LABS: ABS Eosinophils 0.1 10^3/ul (0-0.6); ABS Monocytes 0.5 10^3/ul (0-0.8); ABS Neutrophils 5.3 10^3/ul (1.5-7.7); Eosinophil % 1.3 %; Hematocrit 36 % (35-47); Lymphocyte % 14.1 %; Mean Corpuscular HGB Conc 34 g/dL (31-36); Mean Corpuscular Hemoglobin 32 pg (27-31); Mean Corpuscular Volume 94 fL (80-97); Mean Platelet Volume 7.3 fL (7.4-10.4); Platelet Count 286 10^3/uL (150-450); Red Blood Count 3.79 10^6 /uL (3.70-4.87); Red Cell Distribution Width 15 % (10-15)
[2019-11-13 19:21] LABS: INR 1.11 (0.82-1.09)
[2019-11-13 19:24] LABS: ALT 8 U/L (7-52); AST 15 U/L (13-39); Albumin 3.6 g/dL (3.2-5.2); Alkaline Phosphatase 84 U/L (34-104); Anion Gap 8 mmol/L (2-11); BUN/Creatinine Ratio 28.2 (8-20); Blood Urea Nitrogen 20 mg/dL (6-24); CO2 Carbon Dioxide 30 mmol/L (22-32); Calcium 9.1 mg/dL (8.6-10.3); Chloride 101 mmol/L (101-111); EGFR African American 96.6 (>60); EGFR Non-African American 79.8 (>60); Globulin 3.6 g/dL (2-4); Glucose 102 mg/dL (70-100); Potassium 4.1 mmol/L (3.5-5.0); Sodium 139 mmol/L (135-145); Total Protein 7.2 g/dL (6.4-8.9)
[2019-11-13 19:29] LABS: Troponin I 0.04 ng/mL (<0.03)
--- NOTE | 2019-11-13 21:08 | ED ---
Dizziness - HPI Summary HPI Summary: Patient is a 79 y/o F w/ Hx of TX and cardiac stent placement who presents to [facility] with complaints of dizziness. Dizziness is characterized as a light- headedness. She states that the dizziness onset this evening while the patient was standing and making supper. Patient reports that sitting/lying in stretcher resolves her dizziness, but she experiences the dizziness once more whenever she stands up. Left ear pain is also reported. Patient denies chest pain, nausea , and diaphoresis. PMHx of lupus is also noted. PSHx of hemorrhoids surgery. FMHx of cardiac disease and CA. She denies tobacco, alcohol, and other substance usage. Home medications and allergies are reviewed. - History Of Current Complaint Chief Complaint: EDChestPainROMI Stated Complaint: DIZZY PER Time Seen by Provider: 11/13/19 19:36 Hx Obtained From: Patient Timing: Intermittent Episode Lasting Character: Lightheaded, Dizzy Aggravating Factor(s): Supine To Erect Associated Signs And Symptoms: Negative: Nausea, Diaphoresis, Chest Pain - Allergies/Home Medications Allergies/Adverse Reactions: Allergies Allergy/AdvReac Type Severity Reaction Status Date / Time No Known Allergies Allergy Verified 11/13/19 20:40 Home Medications: Home Medications Aspirin 81 mg CHEW TAB* 81 mg PO DAILY 04/09/17 [History Confirmed 11/13/19] Cholecalciferol TAB* [Vitamin D TAB*] 1,000 unit PO DAILY 04/09/17 [History Confirmed 11/13/19] Clopidogrel TAB* [Plavix TAB*] 75 mg PO DAILY 04/09/17 [History Confirmed ] Ferrous Sulfate TAB* 325 mg PO DAILY 04/09/17 [History Confirmed 11/13/19] Hydroxychloroquine TAB* [Plaquenil TAB*] 200 mg PO BID 04/09/17 [History Confirmed 11/13/19] Mirtazapine TAB* [Remeron TAB*] 15 mg PO BEDTIME 04/09/17 [History Confirmed ] Calcium Carbonate [Super Calcium] 600 mg PO DAILY 11/13/19 [History Confirmed ] Famotidine TAB* [Pepcid 20 MG TAB*] 20 mg PO BID 11/13/19 [History Confirmed ] Metoprolol Tartrate TAB* [Lopressor TAB*] 25 mg PO BID 11/13/19 [History Confirmed 11/13/19] PMH/Surg Hx/FS Hx/Imm Hx Endocrine/Hematology History: Reports: Hx Systemic Lupus Erythematosus Cardiovascular History: Reports: Hx Angina, Hx Coronary Artery Disease, Hx Myocardial Infarction Respiratory History: Reports: Hx Sleep Apnea - CPAP use Musculoskeletal History: Reports: Hx Arthritis Sensory History: Denies: Hx Contacts or Glasses, Hx Hearing Aid Opthamlomology History: Denies: Hx Contacts or Glasses - Immunization History Immunizations Up to Date: Yes Infectious Disease History: No Infectious Disease History: Denies: Traveled Outside the [place] in Last 30 Days - Family History Known Family History: Positive: Cardiac Disease, Hypertension - Social History Alcohol Use: Rare Hx Substance Use: No Substance Use Type: Reports: None Hx Tobacco Use: Yes Smoking Status (MU): Former Smoker Review of Systems - ROS Summary Review of Systems Summary: Home Medications Medication Instructions Recorded Confirmed Type Aspirin 81 mg CHEW TAB* 81 mg PO DAILY 04/09/17 11/13/19 History Cholecalciferol TAB* [Vitamin D 1,000 unit PO DAILY 04/09/17 11/13/19 History TAB*] Clopidogrel TAB* [Plavix TAB*] 75 mg PO DAILY 04/09/17 11/13/19 History Ferrous Sulfate TAB* 325 mg PO DAILY 04/09/17 11/13/19 History Hydroxychloroquine TAB* [Plaquenil 200 mg PO BID 04/09/17 11/13/19 History TAB*] Mirtazapine TAB* [Remeron TAB*] 15 mg PO BEDTIME 04/09/17 11/13/19 History Calcium Carbonate [Super Calcium] 600 mg PO DAILY 11/13/19 11/13/19 History Famotidine TAB* [Pepcid 20 MG TAB*] 20 mg PO BID 11/13/19 11/13/19 History Metoprolol Tartrate TAB* 25 mg PO BID 11/13/19 11/13/19 History [Lopressor TAB*] Negative: Skin Diaphoresis Positive: Ear Ache Negative: Chest Pain Negative: Nausea Neurological/Mental Status: Other - positive - dizziness All Other Systems Reviewed And Are Negative: Yes Physical Exam - Summary Physical Exam Summary: General: Well-developed, Thin, Elderly Female. No acute distress. HEENT: Normocephalic, Atraumatic. Eyes: Conjuctiva normal, PERRL. Oropharynx: Clear, mucous membranes moist, (-) exudates. Neck: Soft, FROM, (-) lymphadenopathy, (-) thyromegaly, (-) JVD. Cardiovascular: Normal sinus rhythm, (-) murmur. Lungs: Decreased Breath Sounds throughout, Rhoncorous Breath Sounds; (-) wheezes , (-) rales Abdomen: Soft, non-tender, non-distended, (-) organomegaly, normal bowel sounds. Back: (-) CVA tenderness Extremities: No edema. Skin: Warm, dry, (-) rash. Neuro: Alert and oriented x3, moves all extremities equally. No ataxia. No gait disturbance. No sensory deficit. Normal strength, normal sensation. Psychiatric: Mood normal, affect normal. Triage Information Reviewed: Yes Vital Signs On Initial Exam: Initial Vitals Temp Pulse Resp BP Pulse Ox 98.0 F 95 18 162/66 98 11/13/19 18:31 11/13/19 18:31 11/13/19 18:31 11/13/19 18:31 11/13/19 18:31 Vital Signs Reviewed: Yes Procedures - Sedation Patient Received Moderate/Deep Sedation with Procedure: No Diagnostics - Vital Signs Vital Signs Temp Pulse Resp BP Pulse Ox 11/13/19 20:34 92 26 137/86 96 11/13/19 20:32 29 11/13/19 18:31 98.0 F 95 18 162/66 98 - Laboratory Lab Results: Lab Results 11/13/19 11/13/19 11/13/19 Range/Units 18:55 18:55 18:55 WBC 7.0 (3.5-10.8) 10^3/uL RBC 3.79 (3.70-4.87) 10^6 /uL Hgb 12.0 (12.0-16.0) g/dL Hct 36 (35-47) % MCV 94 (80-97) fL MCH 32 H (27-31) pg MCHC 34 (31-36) g/dL RDW 15 (10-15) % Plt Count 286 (150-450) 10^3/uL MPV 7.3 L (7.4-10.4) fL Neut % (Auto) 76.5 % Lymph % (Auto) 14.1 % [place] % (Auto) 7.6 % Eos % (Auto) 1.3 % Baso % (Auto) 0.5 % Absolute Neuts (auto) 5.3 (1.5-7.7) 10^3/ul Absolute Lymphs (auto) 1.0 (1.0-4.8) 10^3/ul Absolute Monos (auto) 0.5 (0-0.8) 10^3/ul Absolute Eos (auto) 0.1 (0-0.6) 10^3/ul Absolute Basos (auto) 0.0 (0-0.2) 10^3/ul Absolute Nucleated RBC 0.0 10^3/ul Nucleated RBC % 0.0 INR (Anticoag Therapy) 1.11 H (0.82-1.09) Sodium 139 (135-145) mmol/L Potassium 4.1 (3.5-5.0) mmol/L Chloride 101 (101-111) mmol/L Carbon Dioxide 30 (22-32) mmol/L Anion Gap 8 (2-11) mmol/L BUN 20 (6-24) mg/dL Creatinine 0.71 (0.51-0.95) mg/dL Est GFR ( Amer) 96.6 (>60) Est GFR (Non-Af Amer) 79.8 (>60) BUN/Creatinine Ratio 28.2 H (8-20) Glucose 102 H (70-100) mg/dL Calcium 9.1 (8.6-10.3) mg/dL Total Bilirubin 0.30 (0.2-1.0) mg/dL AST 15 (13-39) U/L ALT 8 (7-52) U/L Alkaline Phosphatase 84 (34-104) U/L Troponin I 0.04 H* (<0.03) ng/mL Total Protein 7.2 (6.4-8.9) g/dL Albumin 3.6 (3.2-5.2) g/dL Globulin 3.6 (2-4) g/dL Albumin/Globulin Ratio 1.0 (1-3) Result Diagrams: 11/13/19 18:55 11/13/19 18:55 Lab Statement: Any lab studies that have been ordered have been reviewed, and results considered in the medical decision making process. - Radiology CXR Radiology Interpretation Completed By: ED Physician Summary of Radiographic Findings: No pleural effusion, no obvious infiltrate. Pending official report. - EKG 1837 Cardiac Rate: NL - rate of 93 BPM EKG Rhythm: Sinus Rhythm Summary of EKG Findings: EKG reveals normal sinus rhythm with rate of 93 BPM, no acute changes, no ischemic changes. This EKG was reviewed and interpreted by ED physician. 0100 Cardiac Rate: NL - rate of 89 BPM EKG Rhythm: Sinus Rhythm Summary of EKG Findings: EKG showed NSR with rate of 89 BPM, RBBB, no acute changes, no STEMI. This EKG was reviewed and interpreted by ED physician. Dizzy Course/Dx - Course Course Of Treatment: 79-year-old female presents today with a complaint of dizziness. She states was standing in making dinner she suddenly felt dizzy. He got better with rest. Came back when she stood up again. Patient is concerned about her heart. She states that when she had a heart attack a few years ago and had stents placed in [place], she had no chest pain at that time. No shortness of breath. No fevers or chills or cough. No nausea. No diaphoresis. No significant findings on physical exam. Workup demonstrates a troponin of 0.04 for 3 serial troponins. ekg x 2 without significant acute ischemic changes. Chest x-ray shows no significant abnormality. It is felt the patient is dehydrated at this time. She is symptomatic with standing. Advised increase fluids. Follow-up with PCP and cardiology. Follow-up sooner for any worsening symptoms. - Diagnoses Provider Diagnoses: Dizziness Discharge ED - Sign-Out/Discharge Documenting (check all that apply): Patient Departure - discharge - Discharge Plan Condition: Stable Disposition: HOME Patient Education Materials: Dizziness (ED) Referrals: Chrsi ANTONIO,Steve Bajwa [Primary Care Provider] - 3 Days Additional Instructions: PLEASE RETURN TO ED FOR ANY NEW OR WORSENING SYMPTOMS. PLEASE FOLLOWUP WITH YOUR PRIMARY CARE PHYSICIAN AND BUN PANNER WITHIN THREE DAYS. - Billing Disposition and Condition Condition: STABLE Disposition: Home - Attestation Statements Document Initiated by Scribe: Yes Documenting Scribe: ARLEN MENDOZA Provider For Whom Miyaibe is Documenting (Include Credential): TERE HERNANDEZ MD Scribe Attestation: ARLEN Beltran, scribed for TERE HERNANDEZ MD on 11/14/19 at 0621. Scribe Documentation Reviewed: Yes Provider Attestation: The documentation as recorded by the scribe, ARLEN MENDOZA accurately reflects the service I personally performed and the decisions made by me, TERE HERNANDEZ MD Status of Scribe Document: Viewed
[2019-11-13 22:19] LABS: Troponin I 0.04 ng/mL (<0.03)
[2019-11-14 00:55] LABS: Troponin I 0.04 ng/mL (<0.03)
[2019-11-14 01:08] VITALS: BP 128/68
== END 2019-11-14 01:15 | disposition home or self-care (01) ==
LOC: ED 18:30
DX: R42 Dizziness and giddiness (principal); I25.10 Atherosclerotic heart disease of native coronary artery without angina pectoris; M32.9 Systemic lupus erythematosus, unspecified; I25.2 Old myocardial infarction; Z87.891 Personal history of nicotine dependence; Z79.899 Other long term (current) drug therapy; Z79.82 Long term (current) use of aspirin; I45.10 Unspecified right bundle-branch block
CPT/HCPCS: 36415; 71045; 80053; 84484; 85025; 85610; 93005; 99284